=== PATIENT | male | born 1985 | race Caucasian/White ===

== ENCOUNTER 2018-05-25 09:02 | Emergency (ER) | payer OTHER ==
[~2018-05-25] VITALS: Ht 203.2 cm; Wt 99.8 kg
[~2018-05-25 09:02] MED LIST: MINIPRESS5 MG PO; VENLAFAXINE HCL75 MG PO
== END 2018-05-25 09:46 | disposition home or self-care (01) ==
LOC: ED 09:02
DX: S49.91XA Unspecified injury of right shoulder and upper arm, initial encounter (principal); X58.XXXA Exposure to other specified factors, initial encounter

== ENCOUNTER 2018-11-08 21:41 | Emergency (ER) | payer SELFPAY ==
[~2018-11-08] VITALS: Ht 203.2 cm; Wt 97.5 kg
== END 2018-11-09 01:24 | disposition home or self-care (01) ==
LOC: ED 21:41
DX: S00.11XA Contusion of right eyelid and periocular area, initial encounter (principal); I10 Essential (primary) hypertension; Q87.40 Marfan syndrome, unspecified; F17.200 Nicotine dependence, unspecified, uncomplicated; Z88.0 Allergy status to penicillin; Y04.0XXA Assault by unarmed brawl or fight, initial encounter
CPT/HCPCS: 70450; 70486; 99284-25

== ENCOUNTER 2024-09-21 06:12 | Emergency (ER) | payer BC ==
[~2024-09-21] VITALS: Ht 203.2 cm; Wt 99.8 kg
[2024-09-21] MEDS ORDERED: IBUPROFEN 800 MG TAB PO ONE (06:30)
[2024-09-21] MEDS ORDERED: IBU800 MG PO (06:40)
[2024-09-21 06:55] VITALS: BP 151/89
== END 2024-09-21 06:57 | disposition home or self-care (01) ==
LOC: ED 06:12
DX: M72.2 Plantar fascial fibromatosis (principal); I10 Essential (primary) hypertension; Q87.40 Marfan syndrome, unspecified; Z88.0 Allergy status to penicillin
CPT/HCPCS: 73630; 99283; A9270

== ENCOUNTER 2024-10-02 08:06 | Emergency (ER) | payer OTHER, BC ==
[~2024-10-02] VITALS: Ht 203.2 cm; Wt 99.8 kg
[~2024-10-02 08:06] MED LIST changes: +IBU800 MG PO
--- OUTSIDE RECORDS SUMMARY | 2024-10-02 08:08 | XMS ---
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 Ashley has no Care Guidelines for this patient. Ricardo VISIT COUNT (12 MO.) 2 [facility] [place] [facility]. TOTAL 2 NOTE: Visits indicate total known visits. ED/C VISIT TRACKING (12 MO.) 10/02/2024 08:07 [facility] TYPE: Emergency COMPLAINT: - RT ANKLE INJURY 09/21/2024 06:13 [facility] TYPE: Emergency COMPLAINT: - RT FOOT PAIN DIAGNOSES: - Allergy status to penicillin - Essential (primary) hypertension - Marfan syndrome, unspecified - Pain in right foot - Plantar fascial fibromatosis INPATIENT VISIT TRACKING (12 MO.) No inpatient visits to display in this time frame [email or web address]
[2024-10-02 11:29] VITALS: BP 163/122
== END 2024-10-02 11:35 | disposition home or self-care (01) ==
LOC: ED 08:06
DX: S92.044A Nondisplaced other fracture of tuberosity of right calcaneus, initial encounter for closed fracture (principal); W01.0XXA Fall on same level from slipping, tripping and stumbling without subsequent striking against object, initial encounter; I10 Essential (primary) hypertension; Q87.40 Marfan syndrome, unspecified; F17.200 Nicotine dependence, unspecified, uncomplicated; Z88.0 Allergy status to penicillin; Z79.899 Other long term (current) drug therapy
CPT/HCPCS: 29515; 73610; 73700; 99284-25

== ENCOUNTER 2025-08-03 20:02 | Emergency (ER) | payer BC ==
[~2025-08-03] VITALS: Ht 203.2 cm; Wt 100.0 kg
[2025-08-03 20:15] LABS: BASOPHILS 0.3 % (0.2-1.2); EOSINOPHILS 0.6 % (0.8-7.0); LYMPHOCYTES 15.8 % (21.8-53.1); MCH 30.8 PG (25.7-32.2); MCHC 31.9 g/dL (32.3-36.5); MCV 96.6 fL (79.0-92.2); MONOCYTES 4.0 % (5.3-12.2); NEUTROPHILS 78.7 % (34.0-67.9); RBC 4.94 M/uL (4.63-6.08)
[2025-08-03] MEDS ORDERED: LORazepam 2 MG/ML VIAL IV ONE (20:15)
[2025-08-03 20:37] LABS: ALCOHOL, MEDICAL 4.0 ng/dL (<3); ALT (SGPT) 47.0 U/L (14-59); AST (SGOT) 33.0 U/L (15-37); GLOMERULAR FILTRATION RATE,EST 58.0 mL/min (>60); PROTEIN, TOTAL 7.8 g/dL (6.4-8.2); UREA NITROGEN 12.0 mg/dL (7-18)
[2025-08-03] MEDS ORDERED: LACTATED RINGER'S 1,000 ML IV ONE ×2 (21:00)
[2025-08-03 22:30] LABS: GLOMERULAR FILTRATION RATE,EST 88.0 mL/min (>60); UREA NITROGEN 10.0 mg/dL (7-18)
[2025-08-03] MEDS ORDERED: KEPPRA500 MG PO (22:48)
[2025-08-03] MEDS ORDERED: ONDANSETRON 4 MG HOME.PACK SL ONE (23:00)
[2025-08-03] MEDS ORDERED: LORazepam 1 MG HOME.PACK PO ONE (23:00)
[2025-08-03 23:09] VITALS: BP 145/100
== END 2025-08-03 23:10 | disposition home or self-care (01) ==
LOC: ED 20:02
PROVIDERS: Family Medicine
DX: R56.9 Unspecified convulsions (principal); R73.9 Hyperglycemia, unspecified; E87.20 Acidosis, unspecified; I10 Essential (primary) hypertension; F17.200 Nicotine dependence, unspecified, uncomplicated; Z88.0 Allergy status to penicillin; Z79.899 Other long term (current) drug therapy
CPT/HCPCS: 36415; 70450; 80048; 80053; 82010; 82803; 85025; 96365; 96375; 99285-25; A9270; G0480; J1953; J2060; J2405; J7121